=== PATIENT | female | born 1935 | race Native Hawaiian/Other Pacific Islander ===

== ENCOUNTER 2016-07-05 11:31 | Outpatient (CLI) | payer OTHER ==
[~2016-07-05 11:31] MED LIST: ASPIRIN LOW81 M1 PO; CLOP75TA2 PO; FERGON240 MG PO; GABA300C2 PO; HYDR5TAB9 PO; LANTUS100 MG/ML SC; LEVO0.0218 PO; LIPITOR40 MG PO; METO50TA27 PO; NOVOLOG SC; NOVOLOG100 MG/ML SC; OMEP20CA PO; REQUIP0.25 MG OR; TRAM50TA PO; TRAZ50TA36 PO
[2016-07-05 12:01] LABS: PLATELET COUNT 183 K/uL (152-353)
[2016-07-05 12:33] LABS: POTASSIUM 4.2 mmol/L (3.6-5.2)
== END 2016-07-05 19:13 | disposition home or self-care (01) ==
LOC: LAB 11:31
PROVIDERS: Specialist
DX: E11.9 Type 2 diabetes mellitus without complications (principal); E78.4 Other hyperlipidemia; I10 Essential (primary) hypertension; N39.498 Other specified urinary incontinence
CPT/HCPCS: 36415; 80069; 82570; 84155; 85027

== ENCOUNTER 2016-07-19 15:11 | Outpatient (CLI) | payer OTHER | END 2016-07-19 17:00 | disposition home or self-care (01) | LOC: RAD 15:11 | DX: M25.562 Pain in left knee (principal) ==

== ENCOUNTER 2016-10-22 11:40 | Outpatient (CLI) | payer OTHER ==
[2016-10-22 13:08] LABS: POTASSIUM 4.7 mmol/L (3.6-5.2)
== END 2016-10-22 19:32 | disposition home or self-care (01) ==
LOC: LAB 11:40
PROVIDERS: Specialist
DX: E11.9 Type 2 diabetes mellitus without complications (principal)
CPT/HCPCS: 80069

== ENCOUNTER 2016-12-02 11:00 | Outpatient (CLI) | payer OTHER ==
[2016-12-02 12:04] LABS: PLATELET COUNT 201 K/uL (152-353)
[2016-12-02 12:52] LABS: POTASSIUM 4.3 mmol/L (3.6-5.2)
== END 2016-12-02 12:00 | disposition home or self-care (01) ==
LOC: LAB 11:00
PROVIDERS: Specialist
DX: N17.8 Other acute kidney failure (principal); R60.0 Localized edema; E11.9 Type 2 diabetes mellitus without complications; E78.4 Other hyperlipidemia; I10 Essential (primary) hypertension
CPT/HCPCS: 80069; 82570; 84155; 85027

== ENCOUNTER 2017-02-17 13:33 | Outpatient (CLI) | payer OTHER ==
[2017-02-17 14:20] LABS: PLATELET COUNT 205 K/uL (152-353)
== END 2017-02-17 14:35 | disposition home or self-care (01) ==
LOC: LAB 13:33
PROVIDERS: Specialist
DX: I12.9 Hypertensive chronic kidney disease with stage 1 through stage 4 chronic kidney disease, or unspecified chronic kidney disease (principal); N18.4 Chronic kidney disease, stage 4 (severe); I44.1 Atrioventricular block, second degree; I50.9 Heart failure, unspecified; R32 Unspecified urinary incontinence; E11.29 Type 2 diabetes mellitus with other diabetic kidney complication
CPT/HCPCS: 80069; 82570; 84155; 85027

== ENCOUNTER 2017-04-16 12:35 | Outpatient (CLI) | payer OTHER ==
[2017-04-16 13:26] LABS: PLATELET COUNT 213 K/uL (152-353)
[2017-04-16 13:34] LABS: POTASSIUM 4.3 mmol/L (3.6-5.2)
== END 2017-04-17 04:43 | disposition home or self-care (01) ==
LOC: LAB 12:35
PROVIDERS: Specialist
DX: R60.0 Localized edema (principal); I12.9 Hypertensive chronic kidney disease with stage 1 through stage 4 chronic kidney disease, or unspecified chronic kidney disease; N18.4 Chronic kidney disease, stage 4 (severe); E11.29 Type 2 diabetes mellitus with other diabetic kidney complication
CPT/HCPCS: 80069; 82570; 84155; 85027

== ENCOUNTER 2017-07-24 16:57 | Outpatient (CLI) | payer OTHER | END 2017-07-24 22:07 | disposition home or self-care (01) | LOC: RAD 16:57 | DX: R09.02 Hypoxemia (principal) ==

== ENCOUNTER 2017-07-30 11:06 | Outpatient (CLI) | payer OTHER ==
[2017-07-30 12:36] LABS: PLATELET COUNT 221 K/uL (152-353)
[2017-07-30 13:39] LABS: POTASSIUM 3.8 mmol/L (3.6-5.2)
== END 2017-07-30 21:57 | disposition home or self-care (01) ==
LOC: LAB 11:06
PROVIDERS: Specialist
DX: I50.40 Unspecified combined systolic (congestive) and diastolic (congestive) heart failure (principal); E11.40 Type 2 diabetes mellitus with diabetic neuropathy, unspecified; N18.4 Chronic kidney disease, stage 4 (severe); M62.81 Muscle weakness (generalized); I10 Essential (primary) hypertension
CPT/HCPCS: 80048; 80069; 82570; 84155; 84439; 84443; 85027

== ENCOUNTER 2017-09-01 15:47 | Outpatient (CLI) | payer OTHER | END 2017-09-01 22:46 | disposition home or self-care (01) | LOC: LAB 15:47 | DX: R50.9 Fever, unspecified (principal) | CPT/HCPCS: 81000; 87086; 87088 ==

== ENCOUNTER 2017-11-20 13:06 | Outpatient (CLI) | payer OTHER | END 2017-11-20 23:24 | disposition home or self-care (01) | LOC: LAB 13:06 | DX: L03.116 Cellulitis of left lower limb (principal) | CPT/HCPCS: 87070; 87077; 87185; 87186; 87205 ==

== ENCOUNTER 2018-03-05 08:56 | Outpatient (CLI) | payer OTHER ==
[2018-03-05 09:23] LABS: PLATELET COUNT 211 K/uL (152-353)
[2018-03-05 09:40] LABS: POTASSIUM 4.3 mmol/L (3.6-5.2)
== END 2018-03-05 21:42 | disposition home or self-care (01) ==
LOC: LABW 08:56
PROVIDERS: Internal Medicine
DX: E11.65 Type 2 diabetes mellitus with hyperglycemia (principal); E11.40 Type 2 diabetes mellitus with diabetic neuropathy, unspecified; E03.9 Hypothyroidism, unspecified; R82.998 Other abnormal findings in urine
CPT/HCPCS: 36415; 80053; 80061; 81000; 82043; 82570; 83036; 84439; 84443; 85027; 87086; 87088

== ENCOUNTER 2018-10-08 12:07 | Outpatient (CLI) | payer OTHER ==
[2018-10-08 12:35] LABS: PLATELET COUNT 238 K/uL (152-353)
[2018-10-08 12:55] LABS: POTASSIUM 4.3 mmol/L (3.6-5.2)
== END 2018-10-08 23:36 | disposition home or self-care (01) ==
LOC: LAB 12:07
PROVIDERS: Internal Medicine
DX: E11.9 Type 2 diabetes mellitus without complications (principal); E11.40 Type 2 diabetes mellitus with diabetic neuropathy, unspecified; I10 Essential (primary) hypertension; D64.9 Anemia, unspecified; E03.9 Hypothyroidism, unspecified
CPT/HCPCS: 80053; 81000; 82542; 83036; 84439; 84443; 85027

== ENCOUNTER 2019-02-10 09:19 | Outpatient (CLI) | payer OTHER ==
[2019-02-10 09:45] LABS: POTASSIUM 4.9 mmol/L (3.6-5.2)
== END 2019-02-10 22:25 | disposition home or self-care (01) ==
LOC: LABW 09:19
PROVIDERS: Physician Assistant
DX: R56.9 Unspecified convulsions (principal); N18.9 Chronic kidney disease, unspecified; I12.9 Hypertensive chronic kidney disease with stage 1 through stage 4 chronic kidney disease, or unspecified chronic kidney disease
CPT/HCPCS: 36415; 80053

== ENCOUNTER 2019-02-15 11:39 | Outpatient (CLI) | payer OTHER | END 2019-02-15 20:49 | disposition home or self-care (01) | LOC: RAD 11:39 | DX: M25.512 Pain in left shoulder (principal) ==